=== PATIENT | male | born 1975 | race Caucasian/White ===

== ENCOUNTER 2019-02-06 08:07 | Day surgery (SDC) | payer OTHER ==
[2019-02-03 16:40] VITALS: BMI 19.6
--- NOTE | 2019-02-06 07:31 | P.GSHP ---
History of Present Illness H&P Date: 02/06/19 CHIEF COMPLAINT: Inguinal hernia, bilateral HISTORY OF PRESENT ILLNESS: The patient is a 43-year-old male who presents with a history of swelling and pain along the bilateral groin. He's noted increased swelling including pain of the area. Now he presents for repair of his inguinal hernia. PAST MEDICAL HISTORY: Please see list. PAST SURGICAL HISTORY: Please see list. MEDICATIONS: Please see list. ALLERGIES: Please see list. SOCIAL HISTORY: Tobacco abuse FAMILY HISTORY: No reports of Crohn disease or ulcerative colitis. REVIEW OF ORGAN SYSTEMS: CONSTITUTIONAL: No reports of fevers or chills. No reports of weight loss despite prior attempts. GI: Denies any blood in stools or constipation. PHYSICAL EXAM: VITAL SIGNS: Stable GENERAL: Well-developed pleasant male in no acute distress. HEENT: No scleral icterus. Extraocular movements grossly intact. Moist buccal mucosa. NECK: Supple without lymphadenopathy. CHEST: Unlabored respirations. Equal bilateral excursions. CARDIOVASCULAR: Regular rate and rhythm. Distal 2+ pulses. ABDOMEN: Soft, nondistended. No peritoneal signs. Palpable defect of the bilateral groin. MUSCULOSKELETAL: No clubbing, cyanosis, or edema. ASSESSMENT: 1. Inguinal hernia, bilateral PLAN: 1. Recommend proceeding with a robotic inguinal repair with mesh bilateral approach. 2. Benefits and risks of surgical intervention was discussed including possibility of open technique. 3. DVT prophylaxis. 4. Antibiotic prophylaxis. Past Medical History Past Medical History: CVA/TIA, Hyperlipidemia History of Any Multi-Drug Resistant Organisms: None Reported Past Surgical History: Orthopedic Surgery Additional Past Surgical History / Comment(s): REPAIR RIGHT HAND-TENDON REPAIR Past Anesthesia/Blood Transfusion Reactions: No Reported Reaction Smoking Status: Current every day smoker - Past Family History Mother Family Medical History: Unable to Obtain Additional Family Medical History / Comment(s): ADOPTED - NO HX Medications and Allergies Home Medications Medication Instructions Recorded Confirmed Type Acetaminophen Tab [Tylenol Tab] 650 mg PO Q4H PRN 02/03/19 02/03/19 History [place] Carbonate 300 mg PO DAILY 02/03/19 02/03/19 History [place] Carbonate 600 mg PO HS 02/03/19 02/03/19 History Multivitamin [Multivitamins Adult 1 each PO DAILY 02/03/19 02/03/19 History Gummies] risperiDONE [risperiDONE ODT] 3 mg PO HS 02/03/19 02/03/19 History Allergies Allergy/AdvReac Type Severity Reaction Status Date / Time No Known Allergies Allergy Verified 02/03/19 16:09
[~2019-02-06 08:07] MED LIST: HEPARIN SODIUM,PORCINE 5,000 UNIT/ML 1 ML VIAL SQ ONE; HYDROmorphone 0.5 MG/0.5 ML SYRINGE IVP PRN; LACTATED RINGERS 1,000 ML IV SCH; ONDANSETRON 4 MG/2 ML VIAL IVP PRN
[2019-02-06 08:25] VITALS: TEMP 97.8
[2019-02-06] MEDS ORDERED: LACTATED RINGERS 1,000 ML IV ONE (08:50)
[2019-02-06] MEDS ORDERED: DEXAMETHASONE SOD PHOS (MDV) 100 MG/10 ML VIAL IVP ONE (08:50)
[2019-02-06 09:16] LABS: ALT 33 U/L (21-72); AST 23 U/L (17-59); African American GFR (CKD) >90 (>60 ml/min/1.73 sqM); Albumin 4.5 g/dL (3.5-5.0); Alkaline Phosphatase 69 U/L (38-126); Anion Gap 8 mmol/L; Blood Urea Nitrogen 16 mg/dL (9-20); Calcium 9.3 mg/dL (8.4-10.2); Carbon Dioxide 24 mmol/L (22-30); Chloride 111 mmol/L (98-107); Glucose 83 mg/dL (74-99); Potassium 4.5 mmol/L (3.5-5.1); Sodium 143 mmol/L (137-145); Total Bilirubin 0.6 mg/dL (0.2-1.3)
[2019-02-06 09:19] LABS: Basophils # (A) 0.1 k/uL (0-0.2); Basophils % (A) 1 %; Eosinophils # (A) 0.2 k/uL (0-0.7); Eosinophils % (A) 4 %; HCT 51.3 % (39.0-53.0); HGB 16.9 gm/dL (13.0-17.5); Lymphocytes # (A) 1.5 k/uL (1.0-4.8); Lymphocytes % (A) 24 %; MCH 30.4 pg (25.0-35.0); MCV 92.1 fL (80.0-100.0); Mean Platelet Volume 7.4; Monocytes # (A) 0.3 k/uL (0-1.0); Monocytes % (A) 5 %; Neutrophils # (A) 4.3 k/uL (1.3-7.7); Neutrophils % (A) 66 %; Platelet Count 288 k/uL (150-450); RBC 5.57 m/uL (4.30-5.90); RDW 14.7 % (11.5-15.5); WBC 6.6 k/uL (3.8-10.6)
[2019-02-06] MEDS ORDERED: PROPOFOL 10 MG/ML 20 ML VIAL IV ONE (09:39)
[2019-02-06] MEDS ORDERED: GLYCOPYRROLATE 0.2 MG/ML 2 ML VIAL ONE (09:39)
[2019-02-06] MEDS ORDERED: fentaNYL (PF) 50 MCG/ML 2 ML AMP ONE (09:39)
[2019-02-06] MEDS ORDERED: MIDAZOLAM 2 MG/2 ML VIAL ONE (09:39)
[2019-02-06] MEDS ORDERED: ROCURONIUM BROMIDE 10 MG/ML 10 ML VIAL IV ONE (09:39)
[2019-02-06] MEDS ORDERED: NEOSTIGMINE 1 MG/ML 10 ML VIAL ONE (09:39)
[2019-02-06] MEDS ORDERED: LIDOCAINE 1% INJ 10MG/ML (20 ML MDV) ONE (09:39)
[2019-02-06] MEDS ORDERED: BUPIVACAINE (PF) 0.25% 30 ML VIAL SQ ONE (10:16)
--- NOTE | 2019-02-06 11:46 | P.OP ---
Date of Procedure: 02/06/19 Description of Procedure: Date of Procedure: 02/06/19 SURGEON: MAGALIS AVALOS MD PREOPERATIVE DIAGNOSES: 1. Bilateral inguinal hernia 2. Bipolar disorder 3. Hyperlipidemia 4. History of transient ischemic attack 5. Tobacco abuse POSTOPERATIVE DIAGNOSES: 1. Bilateral inguinal hernia 2. Bipolar disorder 3. Hyperlipidemia 4. History of transient ischemic attack 5. Tobacco abuse OPERATION: 1. Robotic-assisted da Joaquin Xi laparoscopic repair of initial incarcerated right direct inguinal hernia with mesh, 11.[address] 2. Robotic-assisted da Joaquin Xi laparoscopic repair of initial incarcerated left direct inguinal hernia with mesh, 11.[address] 3. Excision of incarcerated left inguinal lipoma, 2 x 3 cm Anesthesia: GETA, local Estimated Blood Loss (ml): 5 Pathology: other (Bilateral inguinal hernia sac with lipoma left inguinal hernia sac) Disposition: same day Operative Findings: 1. Bilateral direct inguinal hernias, initial 2. Congenital adhesions right lower quadrant undisturbed involving the base of the cecum to abdominal wall 3. Appendix unremarkable and undisturbed 4. Large right 3 x 3 cm direct inguinal hernia without lipoma 5. Left inguinal direct hernia 2 x 2 centimeters with lipoma resected COMPLICATIONS: None. INDICATIONS: The patient is a 43-year-old gentleman who presents with history of right inguinal hernia. Now presents for definitive surgical intervention. Laparoscopic versus open and robotic approaches were discussed. Benefits and risks including bleeding, infection, injury to the vas deferens as well as sterility and chronic groin pain were reviewed. Placement of mesh was also described. Informed consent was obtained. DESCRIPTION: In the preoperative area, the patient was marked with indelible marker along the inguinal hernia. The patient was brought to the operating room and initially laid in supine position. The abdomen had been prepped and draped in standard sterile fashion. Ioban draping was also placed. Prior to incision, a timeout protocol was confirmed with surgical team regarding patient's name including procedures to be performed and location along the bilateral groin. Initial positioning for the robotic assisted ports were selected whereby 20 cm superior to the target anatomy, 0 degree 5 mm laparoscopic trocar entry was performed at the left upper quadrant. The abdomen was insufflated to 15 mmHg which he had tolerated well. Diagnostic laparoscopy demonstrated no injury to bowel, viscera or mesentery. Defects along the left groin and the right side was found. Next, along the epigastrium, 8 mm robot trocar was placed. An 8-mm robotic trocar was placed under direct visualization at the right upper quadrant. An 8 mm port was placed at the left upper quadrant. All trocars were positioned between 10-cm apart from each other. The RollCall (roll.to) XI robot was primed, draped, prepared for docking along upper abdomen of the patient. The patient was positioned 16 steep Trendelenburg position I then went to the RollCall (roll.to) Xi console. The human resources benefits assistant was at bedside for exchange of the robot arms and equipment. The left direct inguinal hernia sac was evaginated whereby the peritoneum was scored using Endo scissors with cautery. Once completely reduced into the abdominal cavity, the peritoneal sac of the hernia was stripped. The sac was resected and then passed off for further pathological analysis. The size of the hernia defect was 3 cm with intraoperative films obtained. Using a 2-0 VLOC, the peritoneal defect of the left inguinal hernia sites was closed using a running suture separately. The defect was found to be completely closed with complete reduction of the left direct inguinal hernia were confirmed. As an onlay, an 11.[address] mesh by Bard was initially cut in half and entered into the abdominal cavity via the 8 mm trocar. The mesh was tacked to the pelvis using 2-0 VLOC 12-inch length sutures. Next, careful attention along the right groin demonstrated an actively incarcerated right inguinal hernia. A direct hernia was confirmed. The right inguinal hernia sac was evaginated whereby the peritoneum was scored using Endo scissors with cautery. Once completely reduced into the abdominal cavity, the peritoneal sac of the hernia was stripped along an incarcerated inguinal hernia involving a large 4-cm right inguinal lipoma. The lipoma and sac was resected and then passed off for further pathological analysis. The size of the hernia defect was 4 cm with intraoperative films obtained. Using a 2-0 VLOC, the peritoneal defect of the right inguinal hernia site was closed using a running suture. The defect was found to be completely closed with complete reduction of the right direct inguinal hernia was confirmed. As an onlay, an 11.[address] mesh by Bard was initially cut in half and entered into the abdominal cavity via the 8 mm trocar. The mesh was tacked to the pelvis using 2-0 VLOC 9-inch length sutures. The robot was undocked from the patient's bedside. I then rescrubbed into the case. Insufflation was released from the abdominal cavity and all instruments were removed from the abdominal cavity. The rest of incisions were reapproximated using 4-0 Monocryl in a running subcuticular fashion. Local anesthetic was placed along the incision including for a bilateral groin block. Incisions were cleansed using dilute hydrogen peroxide. Liquid glue was applied to the skin. At the end of the procedure, the needle, sponge and instrument counts had been verified correct by the surgical services manager. The patient had tolerated the procedure well and was taken to the postanesthesia care unit in stable condition. FINDINGS: 1. Initial right inguinal hernia, 3 cm, direct 2. Left inguinal hernia, 3 cm, direct, with inguinal lipoma resected Plan - Discharge Summary Discharge Rx Participant: Yes New Discharge Prescriptions: New Ibuprofen [Motrin] 600 mg PO Q8HR PRN #30 tab PRN Reason: Pain No Action Multivitamin [Multivitamins Adult Gummies] 1 each PO DAILY Acetaminophen Tab [Tylenol Tab] 650 mg PO Q4H PRN PRN Reason: Pain [place] Carbonate 600 mg PO HS [place] Carbonate 300 mg PO DAILY risperiDONE [risperiDONE ODT] 3 mg PO HS Discharge Medication List Acetaminophen Tab [Tylenol Tab] 650 mg PO Q4H PRN 02/03/19 [History] [place] Carbonate 300 mg PO DAILY 02/03/19 [History] [place] Carbonate 600 mg PO HS 02/03/19 [History] Multivitamin [Multivitamins Adult Gummies] 1 each PO DAILY 02/03/19 [History] risperiDONE [risperiDONE ODT] 3 mg PO HS 02/03/19 [History] Ibuprofen [Motrin] 600 mg PO Q8HR PRN #30 tab 02/06/19 [Rx] Follow up Appointment(s)/Referral(s): Magalis Avalos MD [STAFF PHYSICIAN] - 02/17/19 Patient Instructions/Handouts: *Surgery [facility] - (Anesthesia) Discharge Instructions Outpatient Surgery, Laparoscopic Herniorrhaphy (DC), Inguinal Hernia (DC) Activity/Diet/Wound Care/Special Instructions: No lifting over 10 pounds since 10 days until seen in the office 02/17/2019. May shower. No bath tub soaks. Discharge Disposition: HOME SELF-CARE
[2019-02-06 12:08] VITALS: RESP 16
--- NOTE | 2019-02-06 13:33 | P.ANPRN ---
Procedure Note - Anesthesia - Nerve Block Performed Bilateral Transversus Abdominis Single Time Out Performed: Yes Date of Procedure: 02/06/19 Procedure Start Time: 12:35 Procedure Stop Time: 12:45 Location of Patient Procedure: PACU Indication: Acute Post-Operative Pain, Requested by physician Sedation Type: Sedate with meaningful contact maintained Preparation: Sterile Prep, Sterile Dressing Position: Supine Catheter: None Needle Types: Pajunk Needle Gauge: 20 Technique: Ultrasound Injectate: Other (see comment) (Ropivacaine 0.25% 30 ml per side) Blood Aspirated: No Pain Paresthesia on Injection Noted: No Resistance on Injection: Normal Events: Uneventful and Well Tolerated
[2019-02-06 13:41] VITALS: BP 157/89; PULSE 59
== END 2019-02-06 13:58 | disposition home or self-care (01) ==
LOC: OR 08:07
PROVIDERS: ATTEND Surgery Plastic and Reconstructive Surgery
DX: K40.20 Bilateral inguinal hernia, without obstruction or gangrene, not specified as recurrent (principal); D17.1 Benign lipomatous neoplasm of skin and subcutaneous tissue of trunk; E78.5 Hyperlipidemia, unspecified; Z86.73 Personal history of transient ischemic attack (TIA), and cerebral infarction without residual deficits; F17.210 Nicotine dependence, cigarettes, uncomplicated; F31.9 Bipolar disorder, unspecified; Z79.899 Other long term (current) drug therapy
CPT/HCPCS: 49650; S2900; 64488; 80053; 85025; 88302

== ENCOUNTER → 2020-11-25 | Day surgery (SDC) | payer OTHER ==
[2020-11-24 08:21] VITALS: BMI 18.6
[~2020-11-25] MED LIST changes: +ACETAMINOPHEN TAB 500 MG TAB PO PRN; +ALBUTEROL INHALER 60 PUFF/8 GM INHALER (MHU) INHALATION ONE; +DEXAMETHASONE SOD PHOSPHATE 4 MG/ML 1 ML VIAL IVP ONE; +GABAPENTIN 300 MG CAP PO PRN; +GLYCOPYRROLATE 0.2 MG/ML 2 ML VIAL ONE; -HEPARIN SODIUM,PORCINE 5,000 UNIT/ML 1 ML VIAL SQ ONE; +HEPARIN SODIUM,PORCINE/PF 5,000 UNIT/0.5 ML SYRINGE SQ PRN; +HYDROmorphone 0.5 MG/0.5 ML SYRINGE IVP ONE; -HYDROmorphone 0.5 MG/0.5 ML SYRINGE IVP PRN; +LACTATED RINGERS 1,000 ML IV ONE; -LACTATED RINGERS 1,000 ML IV SCH; +LIDOCAINE 1% (10MG/ML) FOR IV START INTRADERMA ONE; +LIDOCAINE 1% INJ 10MG/ML (20 ML MDV) ONE; +LIDOCAINE 1%-EPI 1:100,000 20 ML VIAL SQ ONE; +MELOXICAM 7.5 MG TAB PO PRN; +NEOSTIGMINE 1 MG/ML 10 ML VIAL ONE; +ONDANSETRON 4 MG/2 ML VIAL IVP ONE; -ONDANSETRON 4 MG/2 ML VIAL IVP PRN; +ONDANSETRON 4 MG/2 ML VIAL ONE; +PROPOFOL 10 MG/ML 20 ML VIAL IV ONE; +ROCURONIUM 10 MG/ML (5 ML VIAL) IV ONE; +ROPIVACAINE 5 MG/ML 30 ML VIAL ONE; +SODIUM CHLORIDE 0.9% (PF) 10 ML VIAL ONE; +SUCCINYLCHOLINE CHLORIDE 100 MG/5 ML SYR IV ONE; +TAMSULOSIN 0.4 MG CAP.ER.24H PO PRN; +fentaNYL (PF) 50 MCG/ML 2 ML AMP ONE
--- NOTE | 2020-11-25 07:46 | P.GSHP ---
History of Present Illness H&P Date: 11/25/20 CHIEF COMPLAINT: Inguinal hernia, bilateral HISTORY OF PRESENT ILLNESS: The patient is a 45-year-old male who presents with a history of swelling and pain along the both groins. Now he presents for repair of his inguinal hernia. PAST MEDICAL HISTORY: Please see list. PAST SURGICAL HISTORY: Please see list. MEDICATIONS: Please see list. ALLERGIES: Please see list. SOCIAL HISTORY: No illicit drug use FAMILY HISTORY: No reports of Crohn disease or ulcerative colitis. REVIEW OF ORGAN SYSTEMS: CONSTITUTIONAL: No fevers or chills. No recent weight loss. EYES: Denies any trouble with vision. No glasses. HEENT: No difficulties with hearing. No nosebleeds. No difficulty swallowing. RESPIRATORY: Denies pneumonia. Denies any troubles with breathing or dyspnea on exertion. CARDIOVASCULAR: Denies any chest pain, palpitations, or recent heart attacks. GASTROINTESTINAL: Denies fatty food intolerance. Denies change in bowel habits and gas bloat. GENITOURINARY: Denies any blood in urine or increased urinary frequency. NEUROLOGICAL: Denies any numbness or tingling along the distal extremities. No seizure disorders or headaches. MUSCULOSKELETAL: Has back pain, stiffness or joint arthritis. SKIN: No current skin cancer. No rash. PSYCHIATRIC: Has depression. Has bipolar disorder. Has ADHD. ENDOCRINE: Denies current thyroid disorders. Denies any blood sugar glucose intolerance. HEME/LYMPHATIC: Denies any lumps and bumps around the neck. No recent deep venous thrombosis. ALLERGY/IMMUNOLOGY: No immunoglobulin therapy. No immune deficiencies. BREAST: Denies current breast lumps, pain or nipple discharge. PHYSICAL EXAM: VITAL SIGNS: Stable GENERAL: Well-developed pleasant male in no acute distress. HEENT: No scleral icterus. Extraocular movements grossly intact. Moist buccal mucosa. NECK: Supple without lymphadenopathy. CHEST: Unlabored respirations. Equal bilateral excursions. CARDIOVASCULAR: Regular rate and rhythm. Distal 2+ pulses. ABDOMEN: Soft, nondistended. No peritoneal signs. Palpable defect of the bilateral groin. MUSCULOSKELETAL: No clubbing, cyanosis, or edema. ASSESSMENT: 1. Inguinal hernia, bilateral 2. Tobacco abuse disorder PLAN: 1. Recommend proceeding with a robotic inguinal repair with mesh with bilateral approach. 2. Benefits and risks of surgical intervention was discussed including possibility of open technique. 3. DVT prophylaxis. 4. Antibiotic prophylaxis. 5. He is elevated risk for perioperative complications due to pre-existing tobacco abuse disorder Past Medical History Past Medical History: COPD, CVA/TIA, GERD/Reflux, Hyperlipidemia, Skin Disorder Additional Past Medical History / Comment(s): past hx migraines, stroke 15-20 yrs ago-no residual effects, rash on stomach for past yr-cause unknown, History of Any Multi-Drug Resistant Organisms: None Reported Past Surgical History: Hernia Repair, Orthopedic Surgery Additional Past Surgical History / Comment(s): REPAIR RIGHT HAND-TENDON REPAIR , cheryl inguinal hernia repair Past Anesthesia/Blood Transfusion Reactions: No Reported Reaction, Unable to Obtain Additional Past Anesthesia/Blood Transfusion Reaction / Comment(s): adopted-no family hx Smoking Status: Current every day smoker - Past Family History Mother Family Medical History: Unable to Obtain Additional Family Medical History / Comment(s): ADOPTED - NO HX Medications and Allergies Home Medications Medication Instructions Recorded Confirmed Type Acetaminophen Tab [Tylenol Tab] 650 mg PO Q4H PRN 02/03/19 11/24/20 History [place] Carbonate 300 mg PO DAILY 02/03/19 11/24/20 History [place] Carbonate 600 mg PO HS 02/03/19 11/24/20 History risperiDONE [risperiDONE ODT] 3 mg PO HS 02/03/19 11/24/20 History Allergies Allergy/AdvReac Type Severity Reaction Status Date / Time No Known Allergies Allergy Verified 11/24/20 08:11
[2020-11-25 10:35] LABS: Basophils % (A) 1 %; Eosinophils # (A) 0.3 k/uL (0-0.7); Eosinophils % (A) 4 %; HCT 51.7 % (39.0-53.0); HGB 17.8 gm/dL (13.0-17.5); Lymphocytes # (A) 1.5 k/uL (1.0-4.8); Lymphocytes % (A) 21 %; MCH 32.7 pg (25.0-35.0); MCHC 34.4 g/dL (31.0-37.0); Mean Platelet Volume 7.2; Monocytes # (A) 0.3 k/uL (0-1.0); Monocytes % (A) 5 %; Neutrophils # (A) 4.9 k/uL (1.3-7.7); Neutrophils % (A) 68 %; Platelet Count 322 k/uL (150-450); RBC 5.44 m/uL (4.30-5.90); RDW 12.1 % (11.5-15.5); WBC 7.2 k/uL (3.8-10.6)
[2020-11-25 10:49] LABS: ALT 20 U/L (4-49); AST 27 U/L (17-59); African American GFR (CKD) >90 (>60 ml/min/1.73 sqM); Alkaline Phosphatase 76 U/L (38-126); Anion Gap 9 mmol/L; Blood Urea Nitrogen 12 mg/dL (9-20); Calcium 9.7 mg/dL (8.4-10.2); Carbon Dioxide 26 mmol/L (22-30); Chloride 107 mmol/L (98-107); Glucose 92 mg/dL (74-99); Non-African American GFR(CKD) >90 (>60 ml/min/1.73 sqM); Potassium 4.6 mmol/L (3.5-5.1); Sodium 142 mmol/L (137-145); Total Bilirubin 0.8 mg/dL (0.2-1.3); Total Protein 8.1 g/dL (6.3-8.2)
[2020-11-25 16:05] VITALS: TEMP 97.2
--- NOTE | 2020-11-25 16:09 | P.OP ---
Date of Procedure: 11/25/20 Description of Procedure: SURGEON: MAGALIS AVALOS MD PREOPERATIVE DIAGNOSES: 1. Bilateral recurrent inguinal hernias, reducible 2. Bipolar disorder 3. Tobacco abuse disorder 4. History of abnormal EKG POSTOPERATIVE DIAGNOSES: 1. Bilateral obturator inguinal hernias, reducible 2. Bipolar disorder 3. Tobacco abuse disorder 4. History of abnormal EKG 5. Severe pelvic peritoneal adhesions OPERATION: 1. Robotic-assisted da Joaquin Xi laparoscopic lysis of adhesions over 30 minutes 1. Robotic-assisted da Joaquin Xi laparoscopic repair bilateral obturator inguinal hernias with mesh, 11.[address] ANESTHESIA: General with local anesthetic ESTIMATED BLOOD LOSS: 5 mL. SPECIMENS: 1. Bilateral obturator inguinal hernia sac COMPLICATIONS: None. FINDINGS: 1. Prior inguinal hernia repair intact with bilateral obturator hernias causing recurrent inguinal hernia 2. Severe bilateral pelvic adhesions to mesh requiring extensive lysis of adhesions using vessel sealer and scissors with cautery INDICATIONS: The patient is a 45-year-old gentleman who presents with recurrent bilateral inguinal hernias. Laparoscopic versus open and robotic approaches were discussed. Benefits and risks including bleeding, infection, injury to the vas deferens as well as sterility and chronic groin pain were reviewed. Placement of mesh was also described. Informed consent was obtained. DESCRIPTION: In the preoperative area, the patient was marked with indelible marker along the inguinal hernia. The patient was brought to the operating room and initially laid in supine position. The abdomen had been prepped and draped in standard sterile fashion. Ioban draping was also placed. Prior to incision, a timeout protocol was confirmed with surgical team regarding patient's name including procedures to be performed and location along the right groin. Initial positioning for the robotic assisted ports were selected whereby 20 cm superior to the target anatomy, 0 degree 5 mm laparoscopic trocar entry was performed at the left upper quadrant. The abdomen was insufflated to 15 mmHg which he had tolerated well. Diagnostic laparoscopy demonstrated no injury to bowel, viscera or mesentery. No peritoneal studding was identified for history of colon cancer. A defect along the left groin without an apparent defect along the right side was found. Along the sigmoid colon, moderate large size diverticula were identified. Next, along the epigastrium, 8 mm robot trocar was placed. An 8-mm robotic trocar was placed under direct visualization at the right upper quadrant. An 8 mm port was placed at the left upper quadrant. All trocars were positioned between 10-cm apart from each other. The Floq XI robot was primed, draped, prepared for docking along upper abdomen of the patient. The patient was positioned 16 steep Trendelenburg position I then went to the Floq Xi console. The electrician station assistant was at bedside for exchange of the robot arms and equipment. Severe pelvic adhesions were identified and addressed using vessel sealer incl uding cirrhosis with cautery for over 30 minutes for extensive lysis of adhesions. Inspection demonstrated intact prior inguinal hernia repairs with new bilateral obturator hernias causing recurrent inguinal hernia. The left obturator inguinal hernia sac was evaginated whereby the peritoneum was scored using Endo scissors with cautery. Once completely reduced into the abdominal cavity, the peritoneal sac of the hernia was stripped. The sac was resected and then passed off for further pathological analysis. The size of the hernia defect was 2 cm with intraoperative films obtained. Using a nonabsorbable 2-0 VLOC, the peritoneal defect of the left obturator hernia sites was closed using a running suture separately. The defect was found to be completely closed with complete reduction of the left obturator hernia were confirmed. As an onlay, an 11.[address] mesh by Bard was initially cut in half and entered into the abdominal cavity via the 8 mm trocar. The mesh was tacked to the pelvis using nonabsorbable 2-0 VLOC sutures. The right obturator hernia sac was evaginated whereby the peritoneum was scored using Endo scissors with cautery. Once completely reduced into the abdominal cavity, the peritoneal sac of the hernia was stripped. The size of the hernia defect was 3 cm with intraoperative films obtained. Using a nonabsorbable 2-0 VLOC, the peritoneal defect of the right inguinal hernia site was closed using a running suture. The defect was found to be completely closed with complete reduction of the right obturator hernia was confirmed. As an onlay, an 11.[address] mesh by Bard was initially cut in half and entered into the abdominal cavity via the 8 mm trocar. The mesh was tacked to the pelvis using nonabsorbable 2-0 VLOC sutures. The robot was undocked from the patient's bedside. I then rescrubbed into the case. Insufflation was released from the abdominal cavity and all instruments were removed from the abdominal cavity. The rest of incisions were reapproximated using 4-0 Monocryl in a running subcuticular fashion. Local anesthetic was placed along the incision including for a bilateral groin block. Incisions were cleansed using dilute hydrogen peroxide. Liquid glue was applied to the skin. At the end of the procedure, the needle, sponge and instrument counts had been verified correct by the surgical supply assistant. The patient had tolerated the procedure well and was taken to the postanesthesia care unit in stable condition. Plan - Discharge Summary Discharge Rx Participant: Yes New Discharge Prescriptions: New Ibuprofen [Motrin] 600 mg PO Q8HR PRN #30 tab PRN Reason: Pain Simethicone [Gas-X] 125 mg PO AC-TID PRN #20 capsule PRN Reason: Pain Acetaminophen Tab [Tylenol Tab] 1,000 mg PO Q6HR PRN #30 tablet PRN Reason: Pain Continue Acetaminophen Tab [Tylenol] 650 mg PO Q4H PRN PRN Reason: Pain [place] Carbonate 600 mg PO HS [place] Carbonate 300 mg PO DAILY risperiDONE [risperiDONE ODT] 3 mg PO HS Discharge Medication List Acetaminophen Tab [Tylenol] 650 mg PO Q4H PRN 02/03/19 [History] [place] Carbonate 300 mg PO DAILY 02/03/19 [History] [place] Carbonate 600 mg PO HS 02/03/19 [History] risperiDONE [risperiDONE ODT] 3 mg PO HS 02/03/19 [History] Acetaminophen Tab [Tylenol Tab] 1,000 mg PO Q6HR PRN #30 tablet 11/25/20 [Rx] Ibuprofen [Motrin] 600 mg PO Q8HR PRN #30 tab 11/25/20 [Rx] Simethicone [Gas-X] 125 mg PO AC-TID PRN #20 capsule 11/25/20 [Rx] Follow up Appointment(s)/Referral(s): Magalis Avalos MD [STAFF PHYSICIAN] - 11/29/20 Patient Instructions/Handouts: Laparoscopic Herniorrhaphy (IP) Activity/Diet/Wound Care/Special Instructions: Using antibacterial soap. No lifting over 4 pounds 4 weeks, December 26November shower. No bathtub soaks for 2 weeks, December 09 Use ice along incisions for today to prevent swelling. Take tylenol, aleve/ibuprofen, simethicone scheduled for 3 days for best pain relief
[2020-11-25 16:40] VITALS: RESP 17
[2020-11-25 16:55] VITALS: BP 125/72; PULSE 66
--- NOTE | 2020-11-25 18:56 | P.ANPRN ---
Procedure Note - Anesthesia - Nerve Block Performed Bilateral Erector Spinae Time Out Performed: Yes (11:54) Date of Procedure: 11/25/20 Procedure Start Time: :54 Procedure Stop Time: 12:08 Location of Patient: PreOp Indication: Acute Post-Operative Pain, Requested by Surgeon (Dr Avalos) Sedation Type: Sedate with meaningful contact maintained Preparation: Sterile Prep Position: Prone Catheter: None Needle Types: Pajunk Needle Gauge: 21 Ultrasound used to visualize needle placement: Yes Ultrasound used to observe medication spread: Yes Injectate: 0.5% Ropivacaine (see comment for volume) (15cc + PF Normal saline 10cc each side) Blood Aspirated: No Pain Paresthesia on Injection Noted: No Resistance on Injection: Normal Image Stored and Saved: Yes Events: Uneventful and Well Tolerated
== END | disposition home or self-care (01) ==
LOC: OR 09:27
PROVIDERS: ATTEND Surgery Plastic and Reconstructive Surgery
DX: K40.91 Unilateral inguinal hernia, without obstruction or gangrene, recurrent (principal); K66.0 Peritoneal adhesions (postprocedural) (postinfection); F31.9 Bipolar disorder, unspecified; F90.9 Attention-deficit hyperactivity disorder, unspecified type; F12.90 Cannabis use, unspecified, uncomplicated; Z79.899 Other long term (current) drug therapy
CPT/HCPCS: 49329; 49651; S2900; 64999; 80053; 85025; 88302

== ENCOUNTER 2024-11-05 10:39 | Emergency (ER) | payer OTHER ==
[2024-11-05] MEDS: NICOTINE 21MG/24HR PATCH TRANSDERM STA (11:51)
[2024-11-05] MEDS: ZIPRASIDONE 20 MG VIAL IM STA (13:34)
[2024-11-05] MEDS: LORazepam 2 MG/ML INJ IM STA (13:34)
--- NOTE | 2024-11-05 13:44 | ED ---
General Adult HPI - General Chief complaint: Psychiatric Symptoms Stated complaint: petition Time Seen by Provider: 11/05/24 10:50 Source: patient, EMS, RN notes reviewed, old records reviewed Mode of arrival: EMS Limitations: no limitations - History of Present Illness Initial comments: This is a 49-year-old male who presents to the emergency department in the custody of the police patient is handcuffed. Patient came from the psychiatrist appointment and the patient was very upset and stated he was suicidal and he wanted to kill his brother so police were contacted patient became [id number] it eventually the patient had to be tased and then he was handcuffed and brought in. Patient is uncooperative though he does state that he has no physical complaints whatsoever and he got tased in the leg and he states it does not bother him. Patient does admit that he is suicidal and would like to kill his brother. - Related Data Home Medications Medication Instructions Recorded Confirmed [place] Carbonate 1,200 mg PO HS 02/03/19 11/05/24 Pyridoxine HCl (Vitamin B6) 900 mg PO HS 11/05/24 11/05/24 [Vitamin B-6] buPROPion [Wellbutrin] 75 mg PO DAILY 11/05/24 11/05/24 Allergies Allergy/AdvReac Type Severity Reaction Status Date / Time No Known Allergies Allergy Verified 11/05/24 11:49 Review of Systems ROS Statement: Those systems with pertinent positive or pertinent negative responses have been documented in the HPI. ROS Other: All systems not noted in ROS Statement are negative. Past Medical History Past Medical History: COPD, CVA/TIA, GERD/Reflux, Hyperlipidemia, Skin Disorder Additional Past Medical History / Comment(s): past hx migraines, stroke 15-20 yrs ago-no residual effects, rash on stomach for past yr-cause unknown, History of Any Multi-Drug Resistant Organisms: None Reported Past Surgical History: Hernia Repair, Orthopedic Surgery Additional Past Surgical History / Comment(s): REPAIR RIGHT HAND-TENDON REPAIR , cheryl inguinal hernia repair Past Anesthesia/Blood Transfusion Reactions: No Reported Reaction, Unable to Obtain Additional Past Anesthesia/Blood Transfusion Reaction / Comment(s): adopted-no family hx Past Psychological History: Bipolar Smoking Status: Current every day smoker - Past Family History Mother Family Medical History: Unable to Obtain Additional Family Medical History / Comment(s): ADOPTED - NO HX General Exam - General Exam Comments Initial Comments: GENERAL: Patient is well-developed and well-nourished. Patient is nontoxic and well- hydrated and is very agitated. ENT: Neck is soft and supple. No significant lymphadenopathy is noted. Oropharynx i s clear. Moist mucous membranes. Neck has full range of motion without eliciting any pain. EYES: The sclera were anicteric and conjunctiva were pink and moist. Extraocular movements were intact and pupils were equal round and reactive to light. Eyelids were unremarkable. PULMONARY: Unlabored respirations. Good breath sounds bilaterally. No audible rales rhonchi or wheezing was noted. CARDIOVASCULAR: There is a regular rate and rhythm without any murmurs gallops or rubs. ABDOMEN: Soft and nontender with normal bowel sounds. SKIN: Skin is clear with no lesions or rashes and otherwise unremarkable. NEUROLOGIC: Patient is alert and oriented x3. Cranial nerves II through XII are grossly intact. Motor and sensory are also intact. Normal speech, volume and content. Symmetrical smile. MUSCULOSKELETAL: Normal extremities with adequate strength and full range of motion. No lower extremity swelling or edema. No calf tenderness. LYMPHATICS: No significant lymphadenopathy is noted PSYCHIATRIC: Patient is depressed angry and wants to kill himself and his brother Limitations: no limitations Course Vital Signs 11/05/24 10:46 Temperature 98.9 F Pulse Rate 100 Respiratory 18 Rate Blood Pressure 144/90 O2 Sat by Pulse 99 Oximetry Procedures - Restraint - Face to Face Restraint Occurrence 1 Patient's Immediate Situation: Endangers self safety, Endangers others' safety, Endangers staff safety, Violent behavior Patient's Reaction to the Intervention: Uncooperative, Angry, Depressed, Hostile, Belligerent, Aggressive, Combative Patient's Medical & Behavioral Condition: Awake, Alert Need to Continue or Terminate Restraint or Seclusion: Continue Face to Face Eval of Restraint Date: 11/05/24 Face to Face Eval of Restraint Time: 10:45 Medical Decision Making - Medical Decision Making Was pt. sent in by a medical professional or institution (, PA, DRESSING ROOM P[employer]TER, urgent care, hospital, or jail...) When possible be specific @ -No Did you speak to anyone other than the patient for history (EMS, parent, family, police, friend...)? What history was obtained from this source @ -No Did you review nursing and triage notes (agree or disagree)? Why? @ -I reviewed and agree with nursing and triage notes Were old charts reviewed (outside hosp., previous admission, EMS record, old EKG, old radiological studies, urgent care reports/EKG's, jail records)? Report findings @ -No old charts were reviewed Differential Diagnosis? @ -Differential Mental Health Depression, anxiety, bipolar, psychosis, schizophrenia, borderline personality, situational depression, adjustment disorder, behavioral disorder, brain tumor, malingering, substance abuse, encephalopathy, medication reaction, dementia, hypothyroidism, degenerative neurologic disorder, lupus.... This is not meant to be all-inclusive list EKG interpreted by me (3pts min.). @ -As above X-rays interpreted by me (1pt min.). @ -None done CT interpreted by me (1pt min.). @ -None done U/S interpreted by me (1pt. min.). @ -None done What testing was considered but not performed or refused? (CT, X-rays, U/S, labs)? Why? @ -None What meds were considered but not given or refused? Why? @ -None Did you discuss the management of the patient with other professionals (professionals i.e. , PA, DR[employer]ING [employer], lab, RT, psych nurse, social media senior associate, material handler 1st shift, teacher, data officer, shoe caser)? Give summary @ -EPS evaluated the patient determined the patient need to be admitted but since he is [facility] the patient will be transferred Was smoking cessation discussed for >3mins.? @ -No Was critical care preformed (if so, how long)? @ -No Were there social determinants of health that impacted care today? How? (Homelessness, low income, unemployed, alcoholism, drug addiction, transportation, low edu. Level, literacy, decrease access to med. care, penitentiary, rehab)? @ -No Was there de-escalation of care discussed even if they declined (Discuss DNR or withdrawal of care, Hospice)? DNR status @ -No What co-morbidities impacted this encounter? (DM, HTN, Smoking, COPD, CAD, Cancer, CVA, ARF, Chemo, Hep., AIDS, mental health diagnosis, sleep apnea, morbid obesity)? @ -None Was patient admitted / discharged? Hospital course, mention meds given and rou te, prescriptions, significant lab abnormalities, going to OR and other pertinent info. @ -Patient remained combative throughout his ED stay and because of this he remained in physical restraints until I restrained him chemically with Geodon and Ativan. Undiagnosed new problem with uncertain prognosis? @ -No Drug Therapy requiring intensive monitoring for toxicity (Heparin, Nitro, Insulin, Cardizem)? @ -No Were any procedures done? @ -No Diagnosis/symptom? @ -Suicidal ideations and homicidal ideations Acute, or Chronic, or Acute on Chronic? @ -Acute Uncomplicated (without systemic symptoms) or Complicated (systemic symptoms)? @ -Complicated Side effects of treatment? @ -No Exacerbation, Progression, or Severe Exacerbation? @ -No Poses a threat to life or bodily function? How? (Chest pain, [place], [place], pneumonia, PE, COPD, DKA, ARF, appy, cholecystitis, CVA, Diverticulitis, Homicidal, Suicidal, threat to staff... and all critical care pts) @ -Yes this can lead to homicide or suicide. - Lab Data Lab Results 11/05/24 Range/Units 11:11 SARS-CoV-2 (PCR) Not Detected (Not Detectd) Critical Care Time Critical Care Time: Yes Total Critical Care Time: 35 Disposition Clinical Impression: Depression, Suicidal ideation, Homicidal ideation Disposition: TRANSFER TO PSYCH HOSP/UNIT Referrals: Solomon Arias DO [Primary Care Provider] - 1-2 days Time of Disposition: 13:43
[2024-11-05 13:46] LABS: Amphetamine Screen,Urine Not Detected (NotDetected); Barbiturate Screen,Urine Not Detected (NotDetected); Benzodiazepines Screen,Urine Not Detected (NotDetected); Cocaine Screen,Urine Not Detected (NotDetected); Methadone Screen, Urine Not Detected (NotDetected); Opiate Screen,Urine Not Detected (NotDetected); Oxycodone Screen, Urine Not Detected (NotDetected); Phencyclidine Screen,Urine Not Detected (NotDetected); Tricyclic Antidepressant,Urine Not Detected (NotDetected); Urn Cannabinoid Scrn Detected (NotDetected)
[2024-11-06] MEDS: LITHIUM CARBONATE 300 MG CAP PO STA (02:15)
[2024-11-06] MEDS: traZODone HCL 50 MG TAB PO ONE (03:14)
[2024-11-06] MEDS: LORazepam 1 MG TAB PO STA (07:18)
[2024-11-06] MEDS: buPROPion 75 MG TAB PO SCH (09:38)
[2024-11-06] MEDS: ZIPRASIDONE 20 MG VIAL IM STA (15:00)
[2024-11-06 15:13] LABS: Basophils # (A) 0.09 10*3/uL (0.00-0.10); Basophils % (A) 0.7 %; Eosinophils # (A) 0.15 10*3/uL (0.04-0.35); Eosinophils % (A) 1.2 %; HCT 47.9 % (39.6-50.0); HGB 16.4 g/dL (13.0-17.0); Lymphocytes # (A) 1.63 10*3/uL (0.90-5.00); Lymphocytes % (A) 13.1 %; MCH 31.8 pg (27.0-32.0); MCHC 34.2 g/dL (32.0-37.0); Mean Platelet Volume 9.4 fL (9.5-12.2); Monocytes # (A) 0.72 10*3/uL (0.20-1.00); Monocytes % (A) 5.8 %; Neutrophils # (A) 9.79 10*3/uL (1.80-7.70); Neutrophils % (A) 78.9 %; Platelet Count 337 10*3/uL (140-440); RBC 5.15 10*6/uL (4.40-5.60); RDW 12.6 % (11.5-14.5); WBC 12.42 10*3/uL (4.50-10.00)
[2024-11-06 15:32] LABS: ALT 25 U/L (4-49); AST 38 U/L (17-59); African American GFR (CKD) >90 (>60 ml/min/1.73 sqM); Albumin 5.1 g/dL (3.5-5.0); Alkaline Phosphatase 83 U/L (38-126); Anion Gap 14 mmol/L; Blood Urea Nitrogen 18 mg/dL (9-20); Calcium 10.3 mg/dL (8.4-10.2); Carbon Dioxide 20 mmol/L (22-30); Chloride 101 mmol/L (98-107); Glucose 82 mg/dL (74-99); Non-African American GFR(CKD) >90 (>60 ml/min/1.73 sqM); Potassium 4.4 mmol/L (3.5-5.1); Sodium 135 mmol/L (137-145); Total Bilirubin 1.2 mg/dL (0.2-1.3); Total Protein 7.8 g/dL (6.3-8.2)
[2024-11-06] MEDS: NICOTINE 21MG/24HR PATCH TRANSDERM STA (20:42)
[2024-11-06] MEDS: LITHIUM CARBONATE 300 MG CAP PO SCH (21:09)
[2024-11-06 21:53] LABS: Appearance,Urine Clear (Clear); Bilirubin,Urine Negative (Negative); Blood,Urine Negative (Negative); Color,Urine Light Yellow; Glucose,Urine (UA) Negative (Negative); Ketones,Urine Negative (Negative); Leukocyte Esterase,Urine Negative (Negative); Nitrite,Urine Negative (Negative); Protein,Urine Negative (Negative); Specific Gravity,Urine 1.013 (1.001-1.035); Urobilinogen,Urine <2.0 mg/dL (<2.0)
[2024-11-07] MEDS: ZOLPIDEM 5 MG TAB PO STA (02:43)
[2024-11-07] MEDS: LORazepam 1 MG TAB PO STA ×2 (04:36→17:15)
[2024-11-07] MEDS: ZIPRASIDONE 20 MG VIAL IM STA ×3 (05:29→18:45)
[2024-11-07] MEDS: ZIPRASIDONE 40 MG CAP PO STA (20:47)
[2024-11-08] MEDS: NICOTINE 21MG/24HR PATCH TRANSDERM STA (00:33)
[2024-11-08] MEDS ORDERED: LORazepam 2 MG/ML INJ IV PRN (04:24)
[2024-11-08] MEDS: LORazepam 1 MG TAB PO STA (04:36)
[2024-11-08] MEDS: ZIPRASIDONE 20 MG VIAL IM STA (09:26)
[2024-11-08] MEDS: DOCUSATE 100 MG CAP PO STA (19:25)
[2024-11-08] MEDS: traZODone HCL 100 MG TAB PO STA (22:12)
[2024-11-09] MEDS: LORazepam 2 MG/ML INJ IV STA (06:00)
[2024-11-09] MEDS: NICOTINE 21MG/24HR PATCH TRANSDERM STA (08:58)
[2024-11-09 12:12] LABS: Influenza A Not Detected (Not Detectd); Influenza B Not Detected (Not Detectd); RSV Not Detected (Not Detectd)
[2024-11-09 19:20] VITALS: BP 127/87; PULSE 95; RESP 17; TEMP 98.7
== END 2024-11-09 19:20 ==
LOC: EC 10:39
DX: F32.A Depression, unspecified (principal); R45.851 Suicidal ideations; R45.850 Homicidal ideations; F17.200 Nicotine dependence, unspecified, uncomplicated; Z11.52 Encounter for screening for COVID-19; Z86.73 Personal history of transient ischemic attack (TIA), and cerebral infarction without residual deficits
CPT/HCPCS: 96372 ×8; 99291 ×2; 82075; 99285; 36415; 80053; 80178; 84443; 85025; 81003; 80306; 80320; 87635; 87636; 96374; S4990 ×3; J2060 ×2; J3486 ×3